=== PATIENT | female | born 1955 | race Asian ===

== ENCOUNTER 2019-08-19 11:21 | Emergency (ER) | payer BC ==
[~2019-08-19] VITALS: Ht 162.6 cm; Wt 70.3 kg
[~2019-08-19 11:21] MED LIST: ASPI-1153; ESTR0.3T3; IRBE1TAB13; LOP600
[2019-08-19 11:45] VITALS: BP_SYST 166
[2019-08-19] MEDS ORDERED: NACL 0.9% 1,000 ML IV ONE ×2 (11:45→13:45)
[2019-08-19] MEDS ORDERED: ONDANSETRON HCL 4 MG/2 ML VIAL IVP ONE (11:45)
--- NOTE | 2019-08-19 11:48 | NUR ---
Placed in room 03 . Placed on refractory manager, blood pressure machine and pulse oximeter. To gown for exam. Side rails up. Report given to Javi LEE.
[2019-08-19] MEDS ORDERED: PANTOPRAZOLE SODIUM 40 MG/VIAL (PROTONIX) IVP ONE (12:00)
--- NOTE | 2019-08-19 12:00 | NUR ---
pt a&ox4 ambulated to ED c/o vomiting, weakness, possible high blood sugar x 3-4 hours. Patient took metformin, atorvastatin with no relief. pt states she feels weak. one episode of vomiting in ED. skin pink dry and warm breathing even unlabored denies abdominal pain chest pain diarrhea. no other complaints. will continue to monitor.
[2019-08-19 12:01] LABS: BASOPHILS % (AUTO) 0.6 % (0.0-2.0); EOSINOPHILS % (AUTO) 0.7 % (0.0-4.0); HEMATOCRIT 37.9 % (36-48); HEMOGLOBIN 12.7 g/dL (12.0-16.0); LYMPHOCYTES # (AUTO) 1.2 K/uL (1.0-5.5); LYMPHOCYTES % (AUTO) 20.7 % (20.5-51.5); MEAN CORPUSCULAR HEMOGLOBIN 30 pg (27-31); MEAN CORPUSCULAR HGB CONC 34 % (32-36); MEAN CORPUSCULAR VOLUME 91 fL (79.0-98.0); MONOCYTES # (AUTO) 0.3 K/uL (0.0-1.0); MONOCYTES % (AUTO) 4.7 % (1.7-9.3); NEUTROPHILS # (AUTO) 4.1 K/uL (1.8-7.7); NEUTROPHILS % (AUTO) 73.3 % (40.0-70.0); PLATELET COUNT (AUTO) 227 K/uL (130-430); RED BLOOD CELL COUNT(AUTO) 4.19 MIL/uL (4.2-6.2); RED CELL DISTRIBUTION WIDTH 14.1 % (9.0-15.0); WHITE BLOOD COUNT (AUTO) 5.6 K/uL (4.8-10.8)
--- NOTE | 2019-08-19 12:10 | NUR ---
ER at bedside examining patient.
[2019-08-19 12:15] LABS: CALCIUM 9.1 mg/dL (8.4-11.0); CREATININE 0.85 mg/dL (0.55-1.30); POTASSIUM 3.3 mmol/L (3.5-5.1)
[2019-08-19 12:18] LABS: PROTHROMBIN TIME 10.4 SECS (9.5-12.5)
[2019-08-19 12:20] LABS: ALBUMIN 4.2 g/dL (3.4-4.8); TOTAL BILIRUBIN 0.8 mg/dL (0.0-1.0)
[2019-08-19 12:56] LABS: CLARITY/URINE CLEAR (CLEAR); COLOR,URINE YELLOW (YELLOW); GLUCOSE,URINE NEGATIVE (NEGATIVE); KETONES,URINE TRACE (NEGATIVE); PROTEIN URINE 2+ (NEGATIVE)
[2019-08-19 12:57] LABS: BILIRUBIN,URINE NEGATIVE (NEGATIVE); BLOOD, URINE NEGATIVE (NEGATIVE); LEUKOCYTE ESTERASE ,URINE NEGATIVE (NEGATIVE); NITRITE, URINE NEGATIVE (NEGATIVE); UROBILINOGEN,URINE 0.2 (0.2-1.0)
[2019-08-19 13:01] LABS: BACTERIA,URINE RARE /HPF (None Seen); RBC,URINE 0-3 /HPF (0-3); WBC,URINE 0-3 /HPF (0-3)
--- NOTE | 2019-08-19 13:55 | NUR ---
Patient transported to radiology via gurney, accompanied by rad staff.
[2019-08-19 14:44] VITALS: BP_SYST 141
== END 2019-08-19 14:44 | disposition home or self-care (01) ==
LOC: SED 11:21
DX: E11.43 Type 2 diabetes mellitus with diabetic autonomic (poly)neuropathy (principal); K31.84 Gastroparesis; R11.10 Vomiting, unspecified; I10 Essential (primary) hypertension; E78.00 Pure hypercholesterolemia, unspecified; Z79.899 Other long term (current) drug therapy
CPT/HCPCS: 36415; 71045; 74021; 80053; 81000; 82962; 83605; 83690; 84484; 85025; 85610; 85730; 87040; 87086; 93005; 96361; 96374; 96375; 99284; C9113; J2405; J7030